=== PATIENT | female | born 1975 | race Caucasian/White ===

== ENCOUNTER 2018-12-07 07:52 | Emergency (ER) | payer OTHER ==
[~2018-12-07] VITALS: Ht 147.3 cm; Wt 57.2 kg
[2018-12-07 07:56] VITALS: Ht 147.3 cm; Wt 57.2 kg
[2018-12-07 09:20] LABS: PLATELET COUNT 324 x10^3mcL (130-400); RED CELL DISTRIBUTION WIDTH 13.4 % (11.5-14.5)
[2018-12-07 10:09] LABS: microscopic required? YES; urine erythrocyte 3+ (NEGATIVE)
[2018-12-07 10:09] LABS: BASOPHIL % 0 % (0-2)
[2018-12-07 11:07] VITALS: BP 109/80
== END 2018-12-07 11:07 | disposition home or self-care (01) ==
LOC: ED 07:52
PROVIDERS: Specialist
DX: O03.9 Complete or unspecified spontaneous abortion without complication (principal)
CPT/HCPCS: 36415